=== PATIENT | male | born 1990 | race Two or more races ===

== ENCOUNTER 2025-04-12 12:22 | Inpatient (IN) | payer OTHER ==
[2025-04-12] VITALS (14 sets, daily range): BP systolic 105–144; BP diastolic 60–102; TEMP 98.6–98.8; O2SAT 98–100
[~2025-04-12] VITALS: Ht 172.7 cm; Wt 186.4 kg
[2025-04-12] MEDS: ROCURONIUM BROMIDE 100 MG/10 ML VIAL IV ONE (12:28)
[2025-04-12] MEDS: ETOMIDATE 2 MG/ML VIAL IV ONE (12:28)
[2025-04-12] MEDS ORDERED: PROPOFOL 100 ML ONE (12:30)
[2025-04-12] MEDS: PROPOFOL 100 ML IV ONE (12:40)
[2025-04-12 13:02] LABS: PLATELET COUNT (AUTO) 252 K/uL (150-450); RED BLOOD CELL COUNT(AUTO) 5.32 MIL/uL (4.5-6.0); RED CELL DISTRIBUTION WIDTH 13.6 % (11.5-15.0); WHITE BLOOD COUNT (AUTO) 11.3 K/uL (4.3-11.0)
[2025-04-12 13:14] LABS: CALCIUM, SERUM 8.0 mg/dL (8.5-10.1); CREATININE 0.7 mg/dL (0.6-1.3); SODIUM SERUM 141 mmol/L (136-145); UREA NITROGEN, BLOOD 9 mg/dL (7-18)
[2025-04-12 13:16] LABS: SERUM AMMONIA 17 umol/L (11-32)
[2025-04-12 13:22] LABS: ALCOHOL, BLOOD 454 mg/dL (0-10); ASPARTATE AMINOTRANSFERASE 37 U/L (15-37); TOTAL PROTEIN, SERUM 8.2 g/dL (6.4-8.2)
[2025-04-12 13:26] LABS: ABG BASE EXCESS -7.6 mmol/L (-2.0-3.0); ABG OXYGEN SATURATION 93.4 % (94.0-98.0); ABG PCO2 54.2 mmHg (35.0-48.0); ABG PH 7.205 (7.350-7.450); ABG PO2 83.1 mmHg (83.0-108.0); ABG TOTAL HEMOGLOBIN 15.7 G/dL (13.5-17.5); PEEP,BG 5 cm H2O; SET RATE, BG 20.0; SITE, ABG LEFT RADIAL; VT, ABG 500 mL
[2025-04-12 13:31] LABS: INR 0.97 (0.91-1.10)
[2025-04-12] MEDS: PIPERACILLIN /TAZOBACTAM 3.375 G in IV D5W 50 ML IV ONE (13:45)
[2025-04-12] MEDS ORDERED: ONDANSETRON HCL/PF 4 MG/2 ML VIAL IVP PRN (14:00)
[2025-04-12] MEDS ORDERED: MAG HYDROX/AL HYDROX/SIMETH 30 ML UDC PO PRN (14:00)
[2025-04-12] MEDS ORDERED: MAGNESIUM HYDROXIDE 30 ML UDC PO PRN (14:00)
[2025-04-12] MEDS ORDERED: Z GUARD REMEDY 4 OZ OINT TP PRN (14:00)
[2025-04-12] MEDS ORDERED: DOSING PER PHARMACY-VANCOMYCIN IV XX PRN (14:00)
[2025-04-12] MEDS ORDERED: ACETAMINOPHEN 325 MG TABLET PO PRN (14:00)
[2025-04-12] MEDS ORDERED: DOSING PER PHARMACY-ZOSYN IV 1 EA EA XX PRN (14:00)
[2025-04-12] MEDS ORDERED: ZOLPIDEM TARTRATE 5 MG TABLET PO PRN (14:00)
[2025-04-12 14:44] LABS: AMPHETAMINE, URINE NEGATIVE (NEGATIVE); BARBITURATE, URINE NEGATIVE (NEGATIVE); BENZODIAZEPINE, URINE NEGATIVE (NEGATIVE); CANNABINOID, URINE NEGATIVE (NEGATIVE); COCCAINE, URINE NEGATIVE (NEGATIVE); OPIATE, URINE NEGATIVE (NEGATIVE)
[2025-04-12] MEDS: VANCOMYCIN 1 GM in IV D5W 250 ML IV ONE (14:57)
[2025-04-12 14:59] LABS: APPEARANCE,URINE SLIGHTLY CLOUDY (CLEAR); BLOOD, URINE 1+ Ery/uL (NEGATIVE); LEUKOCYTE ESTERASE ,URINE NEGATIVE (NEGATIVE); NITRITE, URINE NEGATIVE (NEGATIVE); UGLUCOSE NEGATIVE (NEGATIVE)
[2025-04-12] MEDS: IV D5/0.45 NACL 1,000 ML IV PRN (15:40)
[2025-04-12] MEDS: PROPOFOL 100 ML IV PRN (16:11)
[2025-04-12] MEDS: VANCOMYCIN 1 GM in IV D5W 250ml IV ONE (16:13)
[2025-04-12 16:38] LABS: ADD URINE CULTURE YES; COARSE GRANULAR CASTS,URINE Moderate /LPF (None Seen); SQUAMOUS EPITHELIAL CELL,UR Moderate /HPF (None Seen)
[2025-04-12] MEDS: ZOSYN IVPB 3.375 G in IV D5W 50ml IV SCH (20:10)
[2025-04-12] MEDS: VANCOMYCIN HCL 1.25 GM in IV D5W 250 ML IV SCH (23:38)
[2025-04-13] VITALS (13 sets, daily range): BP systolic 126–139; BP diastolic 64–91; TEMP 98.4–99.6; O2SAT 98–100
[2025-04-13] MEDS: PANTOPRAZOLE 40 MG VIAL IV SCH (08:36)
[2025-04-13] MEDS ORDERED: ETOMIDATE 2 MG/ML VIAL IV ONE (09:37)
[2025-04-13] MEDS ORDERED: SUCCINYLCHOLINE CHLORIDE 20 MG/ML VIAL IV ONE (09:37)
[2025-04-13] MEDS ORDERED: PIPERACILLIN /TAZOBACTAM 3.375 G in IV D5W 100 ML IV SCH (16:00)
== END 2025-04-13 10:30 | disposition left against medical advice (07) | DRG 917 ==
LOC: ER 12:29 → EDBD 12:29 → ICU 14:09
PROVIDERS: ADMIT Student in an Organized Health Care Education/Training Program; ATTEND Student in an Organized Health Care Education/Training Program
PROC: 5A1935Z Respiratory Ventilation, Less than 24 Consecutive Hours (ICD-10-PCS; principal; 2025-04-12)
PROC: 0BH17EZ Insertion of Endotracheal Airway into Trachea, Via Natural or Artificial Opening (ICD-10-PCS; 2025-04-12)
DX: T50.901A Poisoning by unspecified drugs, medicaments and biological substances, accidental (unintentional), initial encounter (principal); J69.0 Pneumonitis due to inhalation of food and vomit; J96.02 Acute respiratory failure with hypercapnia; Z68.44 Body mass index [BMI] 60.0-69.9, adult; E87.20 Acidosis, unspecified; G93.40 Encephalopathy, unspecified; Y92.9 Unspecified place or not applicable; E66.01 Morbid (severe) obesity due to excess calories; F10.129 Alcohol abuse with intoxication, unspecified; Y90.8 Blood alcohol level of 240 mg/100 ml or more; E83.51 Hypocalcemia; Z53.29 Procedure and treatment not carried out because of patient's decision for other reasons
CPT/HCPCS: 36415; 36600; 70450-TC; 71045-TC; 80048-TC; 80076-TC; 81001; 82140-TC; 82803-TC; 83605-TC; 84443-TC; 85025-TC; 85730-TC; 87040-TC; 87081-TC; 87086-TC; 94002-TC; 94003-TC; 94799-TC; 99082-TC; A4223; G0378; G0480; J0330; J2470; J2543; J3373; J3490; J7050; J7060